=== PATIENT | female | born 1940 | race African-American/Black ===

== ENCOUNTER 2018-02-11 15:18 | Emergency (ER) | payer OTHER ==
[~2018-02-11] VITALS: Ht 162.6 cm; Wt 74.8 kg
[2018-02-11 15:55] LABS: BASOPHILS # (AUTO) 0.1 /CMM (0.0-0.2); BASOPHILS % (AUTO) 1.5 % (0.0-2.0); EOSINOPHILS % (AUTO) 0.7 % (0.0-6.0); HEMATOCRIT 33 % (33-45); HEMOGLOBIN 11.3 g/dL (11.5-14.8); LYMPHOCYTES # (AUTO) 0.8 /CMM (0.8-4.8); LYMPHOCYTES % (AUTO) 8.9 % (20.0-44.0); MEAN CORPUSCULAR HGB CONC 34 g/dl (31.0-36.0); MEAN CORPUSCULAR VOLUME 85 fL (82-100); MONOCYTES # (AUTO) 0.5 /CMM (0.1-1.30); MONOCYTES % (AUTO) 5.5 % (2.0-12.0); NEUTROPHILS % (AUTO) 83.4 % (43.0-81.0); PLATELET COUNT (AUTO) 370 /CMM (150-450); RDW COEFFICIENT OF VARIATION 16.8 (11.5-15.0); WHITE BLOOD COUNT (AUTO) 8.5 K/uL (4.3-11.0)
[2018-02-11] MEDS ORDERED: IV NS 0.9% 1,000 ML BAG IV ONE (16:00)
[2018-02-11 16:04] LABS: CALCIUM, SERUM 9.3 mg/dL (8.5-10.1); CARBON DIOXIDE 23 mmol/L (21-32); CHLORIDE 107 mmol/L (98-107); CREATININE 1.6 mg/dL (0.6-1.3); GLUCOSE 146 mg/dL (74-106); POTASSIUM 4.5 mmol/L (3.5-5.1); SODIUM SERUM 139 mmol/L (136-145); UREA NITROGEN, BLOOD 29 mg/dL (7-18)
--- NOTE | 2018-02-11 16:06 | NUR ---
PT LEFT FOR CT VIA RNEY
[2018-02-11 16:09] LABS: INR 1.76 (0.85-1.15)
[2018-02-11 16:10] LABS: ALANINE AMINOTRANSFERASE 21 U/L (12-78); ALBUMIN 3.1 g/dL (3.4-5.0); ALKALINE PHOSPHATASE 113 U/L (46-116); ASPARTATE AMINOTRANSFERASE 23 U/L (15-37); BILIRUBIN,DIRECT 0.1 mg/dL (0.0-0.2); BILIRUBIN,TOTAL 0.5 mg/dL (0.2-1.0)
[2018-02-11 16:12] LABS: TROPONIN I < 0.017 ng/mL (0.00-0.056)
--- NOTE | 2018-02-11 16:14 | NUR ---
PT RETURNED FROM CT.
--- NOTE | 2018-02-11 16:25 | NUR ---
DR. LARA AND PT'S DAUGHTER ARE AT THE BEDSIDE SPEAKING.
--- NOTE | 2018-02-11 16:30 | NUR ---
Vel pierre in [facility] - 02/11/18 at 1630 by CLOTILDE CALLED NICKIE FOR PANEL CALL AND DR LAWRENCE WAS PAGED
--- NOTE | 2018-02-11 16:49 | NUR ---
IN AND OUT CATH DONE. APPROX 10 ML YELLOW URINE OUTPUT NOTED.
--- NOTE | 2018-02-11 16:58 | NUR ---
CALLED [facility] AND SPOKE TO THEIR MOTOR CARRIER INSPECTOR TIKI, AND INFORMED THEM THAT WE HAD THEIR PT IN THE ER. WAS TOLD THAT A [facility] WOULD CALL BACK
--- NOTE | 2018-02-11 17:10 | NUR ---
PT IS AWAKE AND SPEAKING TO HER DAUGHTER WHO IS AT THE BEDSIDE. PT REC'D SOCKS AND WARM BLANKETS.
[2018-02-11 17:55] LABS: APPEARANCE,URINE SL CLOUDY (CLEAR); BILIRUBIN,URINE NEGATIVE (NEGATIVE); BLOOD, URINE NEGATIVE Ery/uL (NEGATIVE); COLOR,URINE YELLOW (YELLOW); KETONES,URINE NEGATIVE (NEGATIVE); LEUKOCYTE ESTERASE ,URINE NEGATIVE (NEGATIVE); NITRITE, URINE NEGATIVE (NEGATIVE); PH,URINE 5.5 (5.0-8.0); PROTEIN,URINE NEGATIVE (NEGATIVE); UGLUCOSE NEGATIVE (NEGATIVE); UROBILINOGEN,URINE 0.2 EU/dL (0.2)
--- NOTE | 2018-02-11 18:23 | NUR ---
PT PLACED ON THE BEDPAN.
--- NOTE | 2018-02-11 18:39 | NUR ---
BEDPAN REMOVED. NO URINE NOTED.
--- NOTE | 2018-02-11 18:42 | NUR ---
PT IS GOING TO [facility]. ETA [phone]
--- NOTE | 2018-02-11 18:44 | NUR ---
CALLED [facility] AND SPOKE TO THEIR ELECTRONICS TECH WAS GIVEN TRANSFER INFORMATION. DR. Viktoriya NAYAK IS THE ACCEPTING MD. NUMBER FOR REPORT IS [phone]. ETA FOR ALS TRANSPORT IS [phone].
--- NOTE | 2018-02-11 19:26 | NUR ---
REPORT GIVEN TO [facility] EMT.
--- NOTE | 2018-02-11 19:28 | NUR ---
[place] [facility] [place]
[2018-02-11 19:29] VITALS: BP 108/60
--- NOTE | 2018-02-11 19:40 | NUR ---
REPORT GIVEN TO DIONI RAMIREZ AT [facility].
== END 2018-02-11 20:07 ==
LOC: ER 15:20
DX: G93.40 Encephalopathy, unspecified (principal); E03.9 Hypothyroidism, unspecified; R94.02 Abnormal brain scan; I12.9 Hypertensive chronic kidney disease with stage 1 through stage 4 chronic kidney disease, or unspecified chronic kidney disease; N18.9 Chronic kidney disease, unspecified; Z79.01 Long term (current) use of anticoagulants; Z86.73 Personal history of transient ischemic attack (TIA), and cerebral infarction without residual deficits; Z88.8 Allergy status to other drugs, medicaments and biological substances
CPT/HCPCS: 36415; 70450-TC; 71045-TC; 80048-TC; 80076-TC; 81000-TC; 83605-TC; 84484-TC; 85025-TC; 85730-TC; 87040-TC; 87086-TC; A4606; J7030; Z7610

== ENCOUNTER 2021-08-04 19:01 | Inpatient (IN) | payer OTHER ==
[~2021-08-04] VITALS: Ht 162.6 cm; Wt 81.6 kg
--- NOTE | 2021-08-04 19:35 | NUR ---
PT BIBRA DUE TO INCREASED CONFUSION/WORSTENING DEMENTIA. EMS ACTIVATED BY DAUGHTER BECAUSE SHE BELIEVES SHE IS UNABLE TO CARE FOR HERSELF. PT PLACED INTO A GOWN AND MONITOR ALL VSS. MD WAS AT THE BEDSIDE FOR EVAL.
--- NOTE | 2021-08-04 19:43 | NUR ---
COVID SWAB COLLETED SENT TO LAB
[2021-08-04 20:14] LABS: ALANINE AMINOTRANSFERASE 26 U/L (12-78); ALBUMIN 3.3 g/dL (3.4-5.0); ALCOHOL, BLOOD < 3 mg/dL (0-0); ALKALINE PHOSPHATASE 130 U/L (46-116); ASPARTATE AMINOTRANSFERASE 24 U/L (15-37); BILIRUBIN,DIRECT 0.2 mg/dL (0.0-0.2); BILIRUBIN,TOTAL 0.8 mg/dL (0.2-1.0); CALCIUM, SERUM 9.2 mg/dL (8.5-10.1); CARBON DIOXIDE 27 mmol/L (21-32); CHLORIDE 105 mmol/L (98-107); CREATININE 1.8 mg/dL (0.6-1.3); GLUCOSE 124 mg/dL (74-106); POTASSIUM 4.8 mmol/L (3.5-5.1); SODIUM SERUM 139 mmol/L (136-145); TOTAL PROTEIN, SERUM 7.5 g/dL (6.4-8.2); UREA NITROGEN, BLOOD 27 mg/dL (7-18)
[2021-08-04 20:15] LABS: ACETAMINOPHEN 0 ug/ml (10-30)
[2021-08-04 20:18] LABS: BASOPHILS # (AUTO) 0.1 K/uL (0.0-0.2); BASOPHILS % (AUTO) 0.6 % (0.0-2.0); EOSINOPHILS % (AUTO) 0.8 % (0.0-6.0); HEMATOCRIT 37 % (33-45); HEMOGLOBIN 11.9 g/dL (11.5-14.8); LYMPHOCYTES # (AUTO) 0.8 K/uL (0.8-4.8); LYMPHOCYTES % (AUTO) 7.5 % (20.0-44.0); MEAN CORPUSCULAR HGB CONC 32 g/dl (31.0-36.0); MEAN CORPUSCULAR VOLUME 89 fL (82-100); MONOCYTES # (AUTO) 0.8 K/uL (0.1-1.30); MONOCYTES % (AUTO) 8.5 % (2.0-12.0); NEUTROPHILS # (AUTO) 8.3 K/uL (1.8-8.9); NEUTROPHILS % (AUTO) 82.6 % (43.0-81.0); PLATELET COUNT (AUTO) 314 K/uL (150-450)
[2021-08-04 20:22] LABS: THYROID STIMULATING HORMONE 4.298 uIU/mL (0.358-3.74)
[2021-08-04 20:26] LABS: SERUM AMMONIA < 10 umol/L (11-32)
--- NOTE | 2021-08-04 20:48 | NUR ---
[facility] PAGED PER DR GILBERT.
[2021-08-04] MEDS ORDERED: LORAZEPAM INJ 2 MG/ML VIAL ONE (21:08)
[2021-08-04] MEDS ORDERED: LORAZEPAM INJ 2 MG/ML VIAL IM ONE (21:30)
--- NOTE | 2021-08-04 21:36 | NUR ---
Vel pierre in ED - 08/05/21 at 0712 by KEMAR UA SHANNAN PRIDE MD
[2021-08-04] MEDS ORDERED: ZOLPIDEM TARTRATE 5 MG TABLET PO PRN (22:30)
[2021-08-04] MEDS ORDERED: IV 1/2NS 1000 ML 1,000 ML IV PRN (22:30)
[2021-08-04] MEDS ORDERED: ONDANSETRON HCL/PF 4 MG/2 ML VIAL IVP PRN ×2 (22:30→23:45)
[2021-08-04] MEDS ORDERED: Z GUARD REMEDY 2 OZ OINT TP PRN ×2 (22:30→23:45)
[2021-08-04] MEDS ORDERED: ACETAMINOPHEN 325 MG TABLET PO PRN (22:30)
[2021-08-04] MEDS ORDERED: MAGNESIUM HYDROXIDE 30 ML UDC PO PRN ×2 (22:30→23:45)
[2021-08-04] MEDS ORDERED: MAG HYDROX/AL HYDROX/SIMETH 30 ML UDC PO PRN ×2 (22:30→23:45)
[2021-08-04] MEDS ORDERED: DILTIAZEM HCL 25 MG IV ONE (23:18)
[2021-08-04] MEDS ORDERED: DILTIAZEM HCL 50 MG IV IV ONE (23:30)
[2021-08-05] MEDS: LORAZEPAM INJ 2 MG/ML VIAL IV PRN (02:56)
[2021-08-05 03:50] LABS: BASOPHILS # (AUTO) 0.1 K/uL (0.0-0.2); BASOPHILS % (AUTO) 0.9 % (0.0-2.0); EOSINOPHILS % (AUTO) 0.9 % (0.0-6.0); HEMATOCRIT 41 % (33-45); HEMOGLOBIN 12.9 g/dL (11.5-14.8); LYMPHOCYTES % (AUTO) 18.9 % (20.0-44.0); MEAN CORPUSCULAR HGB CONC 32 g/dl (31.0-36.0); MEAN CORPUSCULAR VOLUME 89 fL (82-100); MONOCYTES % (AUTO) 9.8 % (2.0-12.0); NEUTROPHILS # (AUTO) 7.4 K/uL (1.8-8.9); NEUTROPHILS % (AUTO) 69.5 % (43.0-81.0); PLATELET COUNT (AUTO) 373 K/uL (150-450); RED BLOOD CELL COUNT(AUTO) 4.56 MIL/uL (4.0-5.2); WHITE BLOOD COUNT (AUTO) 10.6 K/uL (4.3-11.0)
[2021-08-05 04:06] LABS: CALCIUM, SERUM 9.2 mg/dL (8.5-10.1); CARBON DIOXIDE 22 mmol/L (21-32); CHLORIDE 105 mmol/L (98-107); CREATININE 1.8 mg/dL (0.6-1.3); GLUCOSE 157 mg/dL (74-106); MAGNESIUM 2.1 mg/dL (1.8-2.4); PHOSPHORUS 4.1 mg/dL (2.5-4.9); POTASSIUM 4.1 mmol/L (3.5-5.1); SODIUM SERUM 143 mmol/L (136-145); UREA NITROGEN, BLOOD 25 mg/dL (7-18)
--- NOTE | 2021-08-05 05:18 | NUR ---
RECIEVED BED 328-2
--- NOTE | 2021-08-05 07:12 | NUR ---
urine sent to lab
--- NOTE | 2021-08-05 07:22 | NUR ---
ATTEMPTED TO GIVE REPORT. NURSE WILL CALL BACK
[2021-08-05] MEDS ORDERED: PANTOPRAZOLE 40 MG TABLET.DR PO SCH (07:30)
--- NOTE | 2021-08-05 07:48 | NUR ---
REPORT GIVEN TO LANETTE WHEATLEY FOR [facility]
[2021-08-05 08:15] VITALS: BP 132/72
[2021-08-05 08:22] LABS: BILIRUBIN,URINE NEGATIVE (NEGATIVE); COLOR,URINE YELLOW (YELLOW); LEUKOCYTE ESTERASE ,URINE NEGATIVE (NEGATIVE); NITRITE, URINE NEGATIVE (NEGATIVE); PH,URINE 5.5 (5.0-8.0); PROTEIN,URINE TRACE mg/dl (NEGATIVE); UGLUCOSE NEGATIVE (NEGATIVE); UROBILINOGEN,URINE 0.2 EU/dL (0.2)
[2021-08-05] MEDS ORDERED: ATOR80TA PO (08:46)
[2021-08-05] MEDS ORDERED: LEVO25TA7 PO (08:46)
[2021-08-05] MEDS ORDERED: DABI150C PO (08:46)
[2021-08-05] MEDS ORDERED: METO100T14 PO (08:46)
[2021-08-05] MEDS ORDERED: DILT-32 PO (08:46)
[2021-08-05] MEDS: IV 1/2NS 1000 ML 1,000 ML IV PRN (08:53)
[2021-08-05 08:54] LABS: BACTERIA,URINE Few /HPF (None Seen); RBC,URINE 0-2 /HPF (0-2); SQUAMOUS EPITHELIAL CELL,UR Few /HPF (None Seen)
[2021-08-05] MEDS: PANTOPRAZOLE 40 MG TABLET.DR PO SCH (09:08)
--- NOTE | 2021-08-05 09:33 | NUR ---
MS RN ADMITTING NOTES PT ADMITTED TO UNIT AT O800 VIA GURNEY ACCOMPANIED BY Donnie KIMBROUGH. PT IS A/O X2-3. VERY SLEEPY AND CONFUSED. UN-ABLE TO GET INFORMATION FROM HER, CALLED DAUGHTER FREDY AND GETS INFORMATION FROM HER. PT ON 02 VIA N/C AT 2LPM, TOLERATING WELL WITH NO ACUTE RESPIRATORY DISTRESS NOTED. LUNGS CLEARED BILATERALLY ON AUSCULTATION. ABDOMEN SOFT, NON-TENDER AND NON-DISTENDED WITH ACTIVE BOWELS SOUNDS ON FOUR QUADRANTS. PHOTOS OF SKIN ISSUES TAKEN AND FILED ON HER CHART. PT NOTED WITH IV ACCESS ON RIGHT HAND G#20 INTACT AND PATENT, IVF OF 1/2 NS AT 75ML STARTED. SAFETY MEASURES INITIATED: BED PLACED IN LOWEST LOCKED POSITION WITH SR UP X2. CALL LIGHT PLACED W/I EASY REACH OF PT. WILL CONTINUE TO MONITOR PT.
[2021-08-05 16:00] VITALS: BP 136/86
--- NOTE | 2021-08-05 18:22 | NUR ---
RN CLOSING NOTES PATIENT ON BED, AWAKE, A/O X2, WITH CONFUSION AND FORGETFULNESS. ON ROOM AIR AT THIS TIME, SATTING @96%, NO SOB NOTED, BREATHING EVEN AND UNLABORED. WITH IV ACCESS ON LHAND PATENT AND INTACT, 1/2 NS @75ML/HR INFUSING WELL. ASSISTED TO BATHROOM NEEDED. SAFETY MEASURES PROVIDED. BED LOCKED AND ON LOWEST POSITION, SR UP X2, CALL LIGHT PLACED WITHIN EASY REACH. WILL ENDORSE TO NEXT SHIFT.
--- NOTE | 2021-08-05 19:05 | NUR ---
RN NOTES: RECEIVED ASLEEP ON BED, PER ENDORSEMENT PATIENT IS A/0X2 WITH PERIODS OF CONFUSION AND FORGETFULNESS,SHE WAS ADMITTED IN THE MORNING, LIVES ALONE AND BROUGHT IN BY HER DAUGHTER, IVF OF 1/2 NS AT 75 CC/HR ONGOING, IV CANNULA ON THE LH G#20 PATENT.SECURED WITH CURLEX.PER MORNING RN SHE WAS AWAKE AT AROUND 4PM AND AMBULATORY, PENDING MED-RECON WITH ADMITTING DOCTOR, HOME MED WERE ALREADY IN THE COMPUTER.ON RA SPO2-95%. Addendum: 08/05/21 at 2029 by SASKIA IBANEZ RN RN NOTES: RN/CH NOTIFIED REGARDING PENDING MED-RECON BY ADMITTING DOCTOR.
[2021-08-05 20:00] VITALS: BP 123/52
--- NOTE | 2021-08-05 20:26 | NUR ---
RN NOTES: -AROUND 200O SHE WAS AWAKE ASKING TO GO TO BATHROOM, IMMEDIATELY RN ASSISTED HER ON THE BED SIDE COMMODE, SHE PEE, ASSISTED BACK TO HER BED, NOTED WITH SLIGHT SOB, KEPT ON O2 INHALATION, SPO2-96%, AFTER FEW MINUTES SHE LOOKS COMFORTABLE, NO MORE SOB, SHE CLOSE HER EYES AND GO BACK TO SLEEP. Addendum: 08/05/21 at 2030 by SASKIA IBANEZ RN ADDED NOTES: -DRINK THIN LIQUIDS, TOLERATED, ASPIRATION PRECAUTION OBSERVED.
--- NOTE | 2021-08-05 20:49 | NUR ---
RN NOTES: -AWAKE SHE REQUEST TO OPEN HER I-PAD, ASSISTED TO THE COMMODE, NOTED WITH SLIGHT SOB, ASKED "ARE YOU OK", SHE VERBALIZED "YES I AM FINE", CONTINUE WITH O2 INHALATION,.OBSERVED, INSTRUCTED HOW TO USE THE CALL LIGHT.
--- NOTE | 2021-08-05 22:29 | NUR ---
RN NOTES: AWAKE ASSISTED ON THE COMMODE, SHE HAD BM, PASS FORMED BROWNISH STOOL, SHE VERBALIZED SHE FEEL GOOD AFTER SHE HAD BOWEL MOVEMENT, ENCOURAGE TO SLEEP,SHE REQUEST TO REMOVE HER IVF, SHE SAID "PLEASE REMOVE IT, ITS DIFFICULT FOR ME TO GET UP WITH THE TUBE ON", EXPLAINED TO HER ITS HER IV FLUIDS FOR HYDRATION, SHE SAID "LATER", SHE ALSO REOMVE HER COMPRESSION DEVISE. -KEPT ON CLOSE WATCH,NEEDS ANTICIPATED.
--- NOTE | 2021-08-06 03:08 | NUR ---
RN NOTES: -AWAKE SHE TRIED TO GET UP FROM BED, DID NOT CALL FOR HELP, RN SAW HER IV CANULA ON THE LH WAS ACCIDENTALLY PULLED OUT, SCANTY BLEEDING NOTED, PRESSURE DRESSING APPLIED. -EXPLAINED TO HER WE NEED TO REINSERT AGAIN, SHE AGREED. -IV CANNULA INSERTED ON THE RH G#22 WITH GOOD BACK FLOW, WRAP WITH CURLEX. -RN EXPLAINED TO HER WE NEED TO RE-START THE IV SHE SAID, LATER ON.
--- NOTE | 2021-08-06 03:12 | NUR ---
RN NOTES: -AWAKE SHE GET UP AND ASKED FOR WATER. -NOTED WITH SLIGHT SOB WHEN SHE EXERT EFFORT AND WHENEVER SHE AMBULATE, ONCE SHE GO BACK TO BED WITH O2 INHALATION SHE LOOKS BETTER AND BREATHING GOES BACK TO NORMAL. -ENCOURAGE TO GO BACK TO SLEEP.
--- NOTE | 2021-08-06 06:54 | NUR ---
RN NOTES: AMBULATING WHENEVER SHE IS AWAKE, ORIENTED TO UNIT, REMINDED SHE IS STILL IN THE HOSPITAL, REFUSED TO START IVF, NOTED WITH SLIGHT SOB WHENEVER SHE WALK EVEN SHORT DISTANCE, SHE CALM DOWN AND BACK TO NORMAL RESPIRATION ONCE SHE IS IN BED AND ABLE TO REST.ENDORSED FOR CONTINUITY OF CARE.
--- NOTE | 2021-08-06 07:32 | NUR ---
RN OPENING NOTE RECEIVED PATIENT AWAKE IN BED. A/O X 1-2. NO S/SX OF DISTRESS NOTED. PATIENT ON 2L O2 VIA NC SATURATING >96%. BREATHING IS EVEN AND UNLABORED; NO SOB NOTED. NO S/SX OF DISTRESS NOTED. IV ACCESS LHAND#22 PATENT AND INTACT WITH 1/2 NS RUNNING @75MLS/HR. SAFETY PRECAUTIONS IN PLACE; BED IN LOW POSITION AND LOCKED, SIDE RAILS UP X2, CALL LIGHT WITHIN REACH. WILL CONTINUE TO MONITOR PATIENT.
[2021-08-06 08:00] VITALS: BP 120/61
[2021-08-06] MEDS: PANTOPRAZOLE 40 MG TABLET.DR PO SCH (08:05)
[2021-08-06 15:50] LABS: CREATININE, URINE 146.2 MG/DL (30.0-125.0)
[2021-08-06 16:00] VITALS: BP 135/72
--- NOTE | 2021-08-06 16:05 | NUR ---
MS RN NOTES DR. DENISHA IY MADE AWARE OF US OF KIDNEY AND URINE TEST RESULTS WITH NO NEW ORDERS.
[2021-08-06] MEDS: IV 1/2NS 1000 ML 1,000 ML IV PRN (18:54)
--- NOTE | 2021-08-06 19:25 | NUR ---
RN OPENING NOTE RECEIVED PT AWAKE IN BED, WATCHING TV. A/O X2. ABLE TO VERBALIZE NEEDS. ON O2 @2LPM VIA NC. PT GETS SOB WITH EXERTION. ABLE TO AMBULATE TO BR WITH STANDBY ASSIST PROVIDED. IV SITE: #22 INTACT/PATENT, RUNNING 1/2 NS @75ML/HR. PT IN NO ACUTE DISTRESS. SAFETY MEASURES IN PLACE, BED IN LOWEST LOCKED POSITION, S/R UP X2, CALL LIGHT WITHIN REACH. WILL CONT TO MONITOR.
[2021-08-06 20:00] VITALS: BP 135/79
--- NOTE | 2021-08-07 07:05 | NUR ---
RN CLOSING NOTE PT RESTING IN BED, EASILY AROUSABLE TO STIMULI. NO C/O PAIN OR DISCOMFORT. PT AMBULATES TO BR TO VOID, STANDBY ASSIST PROVIDED. ALSO USES BEDSIDE COMMODE NEEDED. PT IN NO ACUTE DISTRESS. SAFETY MEASURES IN PLACE. ALL NEEDS ATTENDED TO.
--- NOTE | 2021-08-07 07:25 | NUR ---
MS RN OPENING NOTE PATIENT IN BED, RESTING; A/O X 2. ON O2 AT 2 LPM, BREATHING EVENLY AND UNLABORED. NO SOB OR S/S OF DISTRESS NOTED. IV ACCESS ON LEFT HAND #22G RUNNING 1/2 NS AT 75ML/HR. SAFETY PRECAUTIONS IN PLACE: BED IN LOW, LOCKED POSITION; SIDERAILS UP X 2; ALL LIGHT WITHIN REACH. WILL CONTINUE TO MONITOR.
[2021-08-07] MEDS: PANTOPRAZOLE 40 MG TABLET.DR PO SCH (07:29)
[2021-08-07 08:00] VITALS: BP 135/88
--- NOTE | 2021-08-07 09:00 | NUR ---
RN NOTE RECEIVED VERBAL ORDER FROM DENISE FELIX DNP ORDERED TO DC 1/2 NS IV FLUID.
[2021-08-07] MEDS: DILTIAZEM HCL CD 120 MG PO SCH ×2 (10:08→22:44)
[2021-08-07] MEDS: LEVOTHYROXINE SODIUM 25 MCG TABLET PO SCH (10:09)
[2021-08-07] MEDS: METOPROLOL TARTRATE 50 MG TABLET PO SCH ×2 (10:09→21:23)
[2021-08-07] MEDS: DABIGATRAN ETEXILATE MESYLATE 150 MG CAPSULE PO SCH (10:10)
[2021-08-07 16:00] VITALS: BP 109/59
[2021-08-07] MEDS: LORAZEPAM INJ 2 MG/ML VIAL IV PRN (17:16)
--- NOTE | 2021-08-07 18:28 | NUR ---
RN NOTE MD ORDERED PSYCH CONSULT FOR AGITATION AND ANXIETY.
--- NOTE | 2021-08-07 18:37 | NUR ---
MS RN CLOSING NOTE PATIENT IN BED, ASLEEP. A/O X 2, ABLE TO MAKE NEEDS KNOWN. ON O2 AT 2 LPM, BREATHING EVENLY AND UNLABORED. NO SOB OR S/S OF DISTRESS NOTED. IV ACCESS ON RIGHT HAND #22G PATENT, INTACT, AND FLUSHING WELL. DUE MEDS GIVEN. SAFETY PRECAUTIONS MAINTAINED: BED IN LOW, LOCKED POSITION; SIDERAILS UP X 2; CALL LIGHT WITHIN REACH. WILL ENDORSE TO TOP LIFT SCOURER NURSE FOR [facility].
--- NOTE | 2021-08-07 19:15 | NUR ---
MS/RN OPENING NOTE PT AWAKE IN BED, VERBAL, A/OX2. ABLE TO VERBALIZE NEEDS. HAS SOME CONFUSION AND EASY FORGETFULNESS. REORIENTATION PROVIDED. PT DENIES PAIN OR DISCOMFORT. RESPIRATIONS EVEN AND UNLABORED. ON ROOM AIR AT THIS TIME, SPO2 96%.USES O2 NEEDED, FOR SOB ON EXERTION. PT IN NO ACUTE DISTRESS. SAFETY MEASURES IN PLACE, BED IN LOWEST LOCKED POSITION, S/R UPX2, CALL LIGHT WITHIN REACH. WILL CONT TO MONITOR.
[2021-08-07 20:00] VITALS: BP 119/88
[2021-08-07] MEDS: risperiDONE 1 MG TABLET PO SCH (21:21)
[2021-08-07] MEDS ORDERED: RIVASTIGMINE TARTRATE 1.5 MG CAPSULE ONE (21:42)
[2021-08-07] MEDS: RIVASTIGMINE TARTRATE 1.5 MG CAPSULE PO SCH (21:44)
--- NOTE | 2021-08-07 21:48 | NUR ---
RN NOTE EXELON 1.5MG CAP NOT AVAILABLE HERE AT [facility]. OBTAINED FROM [facility] BY CHARGE NURSE,
[2021-08-07] MEDS: ATORVASTATIN 40 MG TABLET PO SCH (22:44)
--- NOTE | 2021-08-08 06:53 | NUR ---
MS/RN CLOSING NOTE PT AWAKE IN BED, DENIES ANY PAIN OR DISCOMFORT. RESPIRATIONS EVEN/UNLABORED. PT NOT USING O2 @THIS TIME. SPO2 95%. PT IN NO ACUTE DISTRESS. SAFETY MEASURES IN PLACE. ALL NEEDS ATTENDED TO.
[2021-08-08] MEDS: RIVASTIGMINE TARTRATE 1.5 MG CAPSULE PO SCH ×2 (07:00→19:05)
--- NOTE | 2021-08-08 07:44 | NUR ---
MS RN OPENING NOTE PATIENT RECEIVED ASLEEP IN BED. PATIENT IS ON ROOM AIR. NON-LABORED BREATHING; NO S/S OF DISTRESS; NO S/S OF PAIN SUCH GRIMACING OR GUARDING OR MOANING; LH 22 G PRESENT AND INTACT SL; SAFETY PRECAUTIONS IN PLACE, BED IN LOWEST POSITION AND LOCKED, RAILS UP x2. CALL LIGHT WITHIN REACH. WILL CONTINUE TO MONITOR PATIENT.
[2021-08-08] MEDS: PANTOPRAZOLE 40 MG TABLET.DR PO SCH (08:22)
[2021-08-08] MEDS: risperiDONE 1 MG TABLET PO SCH ×2 (08:22→19:31)
[2021-08-08] MEDS: DABIGATRAN ETEXILATE MESYLATE 150 MG CAPSULE PO SCH (08:23)
[2021-08-08] MEDS: LEVOTHYROXINE SODIUM 25 MCG TABLET PO SCH (08:24)
[2021-08-08 08:30] VITALS: BP 113/60
--- NOTE | 2021-08-08 08:47 | NUR ---
WOUND CARE CONSULT: PT REFUSED SKIN ASSESSMENT. PER RN, SKIN IS INTACT. CURRENT ROCÍO SCORE IS 18. ADMISSION PHOTO INDICATES DISCOLORATION ON BUTTOCKS. WILL SEE PRN.
[2021-08-08] MEDS: METOPROLOL TARTRATE 50 MG TABLET PO SCH ×2 (09:00→21:24)
[2021-08-08 12:00] VITALS: BP 115/56
[2021-08-08 16:01] VITALS: BP 124/56
--- NOTE | 2021-08-08 18:52 | NUR ---
MS RN CLOSING NOTE PATIENT ASLEEP IN BED. BREATHING IS SYMMETRICAL AND SHOWING NO S/S OF DISTRESS; NO IV AT THIS TIME; PATIENT REFUSES IV REINSERTION; ALL NEEDS ATTENDED DURING THE DAY; PATIENT IS CURRENTLY AWAITING PLACEMENT FOR D/C; PER SAFETY MEASURES, BED IS LOCKED, AT LOWEST POSITION, WITH RAILS UP X2. WILL ENDORSE PATIENT TO NEXT SHIFT FOR [facility].
--- NOTE | 2021-08-08 19:48 | NUR ---
MS RN OPENING NOTES RECEIVED PT IN BED, AWAKE. AOx2. ON RA AND TOLERATING WELL. NO SOB NOTED. NO S/SX OF RESPIRATORY DISTRESS NOTED. NO IV ACCESS PRESENT BECAUSE PATIENT REFUSED IV INSERTION PER DAYTIME NURSE. SAFETY PRECAUTIONS IN PLACE: BED IN LOWEST, LOCKED POSITION, SIDERAILS UP x2, AND BRAKES ON. TABLE AND CALL LIGHT WITHIN REACH. WILL CONTINUE TO MONITOR.
[2021-08-08 20:48] VITALS: BP 118/62
[2021-08-08] MEDS: ATORVASTATIN 40 MG TABLET PO SCH (21:24)
[2021-08-08] MEDS: DILTIAZEM HCL CD 120 MG PO SCH (22:26)
--- NOTE | 2021-08-09 06:39 | NUR ---
MS RN OPENING NOTES PT IN BEDSIDE CHAIR, AWAKE. AOx2. ON RA AND TOLERATING WELL. NO SOB NOTED. NO S/SX OF RESPIRATORY DISTRESS NOTED. NO IV ACCESS PRESENT BECAUSE PATIENT REFUSED IV INSERTION PER DAYTIME NURSE. ALL NEEDS MET. PT KEPT CLEAN AND DRY. SAFETY PRECAUTIONS IN PLACE: BED IN LOWEST, LOCKED POSITION, SIDERAILS UP x2, AND BRAKES ON. TABLE AND CALL LIGHT WITHIN REACH. WILL ENDORSE TO ONCOMING SHIFT. Addendum: 08/09/21 at 0641 by LENO LIZ RN MS RN CLOSING NOTES
--- NOTE | 2021-08-09 07:45 | NUR ---
RN OPENING NOTE PATIENT IN BEDSIDE CHAIR, AWAKE. A/O x2. NO S/S OF PAIN NOTED AT THIS TIME. ON ROOM AIR AND TOLERATING WELL. NO SHORTNESS OF BREATH NOTED. NO IV ACCESS PRESENT BECAUSE PATIENT REFUSED IV INSERTION PER PREVIOUS NURSE. SAFETY PRECAUTIONS IN PLACE: BED IN LOWEST, LOCKED POSITION, CALL LIGHT AND BEDSIDE TABLE WITHIN REACH. WILL CONTINUE TO MONITOR.
[2021-08-09 08:00] VITALS: BP 155/108
[2021-08-09] MEDS: LEVOTHYROXINE SODIUM 25 MCG TABLET PO SCH (08:12)
[2021-08-09] MEDS: PANTOPRAZOLE 40 MG TABLET.DR PO SCH (08:12)
[2021-08-09] MEDS: risperiDONE 1 MG TABLET PO SCH ×2 (08:12→20:11)
[2021-08-09] MEDS: DABIGATRAN ETEXILATE MESYLATE 150 MG CAPSULE PO SCH (09:09)
[2021-08-09] MEDS: METOPROLOL TARTRATE 50 MG TABLET PO SCH ×2 (09:10→20:12)
[2021-08-09] MEDS: RIVASTIGMINE TARTRATE 1.5 MG CAPSULE PO SCH ×2 (09:11→20:11)
[2021-08-09 16:00] VITALS: BP 107/66
--- NOTE | 2021-08-09 19:11 | NUR ---
RN CLOSING NOTES PATIENT IN BEDSIDE CHAIR, AWAKE. A/O x2. NO S/S OF PAIN NOTED AT THIS TIME. ON ROOM AIR AND TOLERATING WELL. NO SHORTNESS OF BREATH NOTED. NO IV ACCESS PRESENT BECAUSE PATIENT REFUSED IV INSERTION PER PREVIOUS NURSE. SAFETY PRECAUTIONS IN PLACE: BED IN LOWEST, LOCKED POSITION, CALL LIGHT AND BEDSIDE TABLE WITHIN REACH. WILL ENDORSE TO SKIP PITMAN.
--- NOTE | 2021-08-09 19:45 | NUR ---
MS RN OPENING NOTES RECEIVED PT IN BEDSIDE CHAIR, AWAKE. AOx2-3, WITH CONFUSION. ON RA AND TOLERATING WELL. NO SOB NOTED. NO S/SX OF RESPIRATORY DISTRESS NOTED. NO IV ACCESS BECUASE PATIENT REFUSED IV INSERTION. SAFETY PRECAUTIONS IN PLACE: BED IN LOWEST, LOCKED POSITION, SIDERAILS UPx2, AND BRAKES ON. TABLE AND CALL LIGHT WITHIN REACH. WILL CONTINUE TO MONITOR.
[2021-08-09 20:06] VITALS: BP 95/57
[2021-08-09] MEDS: ACETAMINOPHEN 325 MG TABLET PO PRN (21:13)
[2021-08-09] MEDS: DILTIAZEM HCL CD 120 MG PO SCH (21:13)
[2021-08-09] MEDS: ATORVASTATIN 40 MG TABLET PO SCH (21:13)
[2021-08-09] MEDS: ZOLPIDEM TARTRATE 5 MG TABLET PO PRN (23:51)
--- NOTE | 2021-08-10 01:51 | NUR ---
SPOKE TO DAUGHTER, FREDY, WHO STATED [facility] DID NOT APPROVE SNF. SHE WAS TOLD SHE COULD APPEAL. CONTACT NUMBER IS [phone]
--- NOTE | 2021-08-10 06:50 | NUR ---
MS RN CLOSING NOTES PT IN BED, AWAKE. AOx2-3, WITH CONFUSION. ON RA AND TOLERATING WELL. NO SOB NOTED. NO S/SX OF RESPIRATORY DISTRESS NOTED. NO IV ACCESS BECUASE PATIENT REFUSED IV INSERTION. ALL NEEDS MET. PT KEPT CLEAN AND DRY. SAFETY PRECAUTIONS IN PLACE: BED IN LOWEST, LOCKED POSITION, SIDERAILS UPx2, AND BRAKES ON. TABLE AND CALL LIGHT WITHIN REACH. WILL ENDORSE TO ONCOMING SHIFT FOR AMILCAR.
--- NOTE | 2021-08-10 07:55 | NUR ---
RN OPENING NOTE PATIENT IN BEDSIDE SLEEPING, AWAKENS TO VERBAL STIMULI. A/O x2. NO S/S OF PAIN NOTED AT THIS TIME. ON ROOM AIR AND TOLERATING WELL. NO SHORTNESS OF BREATH NOTED. NO IV ACCESS PRESENT BECAUSE PATIENT REFUSED. SAFETY PRECAUTIONS IN PLACE: BED IN LOWEST, LOCKED POSITION, CALL LIGHT AND BEDSIDE TABLE WITHIN REACH. WILL CONTINUE TO MONITOR.
[2021-08-10 08:00] VITALS: BP 123/71
[2021-08-10] MEDS: RIVASTIGMINE TARTRATE 1.5 MG CAPSULE PO SCH ×2 (08:52→20:29)
[2021-08-10] MEDS: risperiDONE 1 MG TABLET PO SCH ×2 (08:53→20:28)
[2021-08-10] MEDS: PANTOPRAZOLE 40 MG TABLET.DR PO SCH (08:53)
[2021-08-10] MEDS: DABIGATRAN ETEXILATE MESYLATE 150 MG CAPSULE PO SCH (08:53)
[2021-08-10] MEDS: LEVOTHYROXINE SODIUM 25 MCG TABLET PO SCH (08:54)
[2021-08-10] MEDS: METOPROLOL TARTRATE 50 MG TABLET PO SCH ×2 (08:55→20:28)
[2021-08-10 16:00] VITALS: BP 108/64
--- NOTE | 2021-08-10 17:52 | NUR ---
HOLD RIVASTIGMINE AND RISPERIDONE DUE TO DROWSINESS. PATIENT BEING SLEEPING MOST OF THE DAY. CN AWARE.
--- NOTE | 2021-08-10 18:50 | NUR ---
RN CLOSING NOTES PATIENT IN BED SLEEPING, AWAKENS TO VERBAL STIMULI. A/O x2. NO S/S OF PAIN NOTED AT THIS TIME. ON ROOM AIR AND TOLERATING WELL. NO SHORTNESS OF BREATH NOTED. NO IV ACCESS PRESENT BECAUSE PATIENT REFUSED. SAFETY PRECAUTIONS IN PLACE: BED IN LOWEST, LOCKED POSITION, CALL LIGHT AND BEDSIDE TABLE WITHIN REACH. WILL ENDORSE PATIENT TO ZONE MAINTENANCE TECHNICIAN.
--- NOTE | 2021-08-10 19:10 | NUR ---
MS RN OPENING NOTES: RECEIVED PT IN BED ASLEEP. NO S/S OF DISTRESS NOTED. CALL LIGHT WITHIN REACH. BED ALARM ON. BED IN LOWEST AND LOCKED POSITION.
[2021-08-10 20:00] VITALS: BP 122/61
[2021-08-10] MEDS: ATORVASTATIN 40 MG TABLET PO SCH (23:11)
[2021-08-10] MEDS: DILTIAZEM HCL CD 120 MG PO SCH (23:11)
[2021-08-11 08:00] VITALS: BP 117/74
--- NOTE | 2021-08-11 08:01 | NUR ---
MS/RN OPENING NOTE RECEIVD PATIENT AT BEDSIDE. A/O x2, PERIODS OF CONFUSION. NO S/S OF PAIN NOTED AT THIS TIME. STABLE ON ROOM AIR AND TOLERATING WELL. NO SHORTNESS OF BREATH NOTED. NO IV ACCESS PRESENT BECAUSE PATIENT REFUSED. SAFETY PRECAUTIONS IN PLACED: BED IN LOWEST, LOCKED POSITION, CALL LIGHT AND BEDSIDE TABLE WITHIN REACH. WILL CONTINUE TO MONITOR.
[2021-08-11] MEDS: LEVOTHYROXINE SODIUM 25 MCG TABLET PO SCH (09:12)
[2021-08-11] MEDS: PANTOPRAZOLE 40 MG TABLET.DR PO SCH (09:12)
[2021-08-11] MEDS: METOPROLOL TARTRATE 50 MG TABLET PO SCH ×2 (09:13→22:13)
[2021-08-11] MEDS: risperiDONE 1 MG TABLET PO SCH ×3 (09:13→19:25)
[2021-08-11] MEDS: RIVASTIGMINE TARTRATE 1.5 MG CAPSULE PO SCH ×3 (09:14→19:08)
[2021-08-11] MEDS: DABIGATRAN ETEXILATE MESYLATE 150 MG CAPSULE PO SCH (09:18)
[2021-08-11 16:00] VITALS: BP 103/63
--- NOTE | 2021-08-11 18:48 | NUR ---
RN CLOSING NOTES PATIENT IS AWAKE SITTING AT BEDSIDE. AWAKENS TO VERBAL STIMULI. A/O x1-2. NO S/S OF PAIN NOTED AT THIS TIME. ON ROOM AIR AND TOLERATING WELL. NO SHORTNESS OF BREATH NOTED. NO IV Pt REFUSED INSERTION. SAFETY PRECAUTIONS IN PLACE: BED LOCKED AND IN LOWEST POSITION, CALL LIGHT AND BEDSIDE TABLE WITHIN REACH. WILL ENDORSE PATIENT TO PROCESSING ARCHIVIST.
--- NOTE | 2021-08-11 19:56 | NUR ---
MS RN OPENING NOTES RECEIVED PATIENT AWAKE IN BED, BED IN LOW POSITION, CALL LIGHTS WITHIN REACH, NO COMPLAIN OF PAIN AND DISCOMFORT AT THIS TIME, PATIENT IS A/OX2 WITH EPISODE OF CONFUSION, AMBULATORY, NEEDS TO BE REDIRECTED TO ROOM, CONFUSED, NO IV LINE PATIENT REFUSE, PATIENT IS AWAITING FOR PLACEMENT,KEPT CLEAN AND DRY ALL NEEDS MET, WILL CONTINUE TO MONITOR.
[2021-08-11 20:00] VITALS: BP 138/65
[2021-08-11] MEDS: DILTIAZEM HCL CD 120 MG PO SCH (22:12)
[2021-08-11] MEDS: ATORVASTATIN 40 MG TABLET PO SCH (22:13)
--- NOTE | 2021-08-12 07:36 | NUR ---
MS RN CLOSING NOTES: PATIENT AWAKE IN ROOOM , AMBULATORY, A.O X3 WITH EPISODE OF CONFUSION, PATIENT WAS ABLE TO MAKE NEED KNOW, NO IV LINE PATIENT REFUSED, PATIENT ALWAYS INTEND TO GO OUT OF THE ROOM ,REMIND AND REDIRECTION. PATIENT KEPT CLEAN AND DRY ALL NEEDS MET, ENDORSE TO INCOMING SHIFT.
[2021-08-12 08:16] VITALS: BP 113/67
[2021-08-12] MEDS: LEVOTHYROXINE SODIUM 25 MCG TABLET PO SCH (08:32)
[2021-08-12] MEDS: METOPROLOL TARTRATE 50 MG TABLET PO SCH ×2 (08:32→21:51)
[2021-08-12] MEDS: risperiDONE 1 MG TABLET PO SCH ×2 (08:33→20:23)
[2021-08-12] MEDS: PANTOPRAZOLE 40 MG TABLET.DR PO SCH (08:33)
[2021-08-12] MEDS: DABIGATRAN ETEXILATE MESYLATE 150 MG CAPSULE PO SCH (08:33)
[2021-08-12] MEDS: RIVASTIGMINE TARTRATE 1.5 MG CAPSULE PO SCH ×2 (08:34→20:23)
--- NOTE | 2021-08-12 09:11 | NUR ---
MS/RN OPENING NOTE RECEIVED PATIENT AWAKE AT BEDSIDE. A/O x2, PERIODS OF CONFUSION NOTICED. NO S/S OF PAIN NOTED AT THIS TIME. STABLE ON ROOM AIR AND TOLERATING WELL. NO SHORTNESS OF BREATH NOTED. NO IV ACCESS PRESENT BECAUSE PATIENT REFUSED. SAFETY PRECAUTIONS IN PLACED: BED LOCKED AND IN LOWEST,POSITION, CALL LIGHT AND BEDSIDE TABLE WITHIN REACH. WILL CONTINUE TO MONITOR THROUGHOUT THE SHIFT.
[2021-08-12 16:21] VITALS: BP 134/78
--- NOTE | 2021-08-12 19:31 | NUR ---
MS RN OPENING NOTES: RECEIVED PATIENT SLEEP IN BED COMFORTABLY, AROUSABLE TO VERBAL STIMULI, BED IN LOW POSITION, CALL LIGHTS WITHIN REACH, PATIENT IS A/O X1 AMBULATORY WITH EPISODE OF CONFUSION, PATIENT KEPT CLEAN AND DRY, ALL NEEDS MET, WILL CONTINUE TO MONITOR.
--- NOTE | 2021-08-12 19:34 | NUR ---
MS RN CLOSING NOTES: PATIENT ASLEEP IN ROOM , AMBULATORY, A/O X1 WITH EPISODE OF CONFUSION. PATIENT IS ON ROOM AIR WITH BRP. NO IV LINE PATIENT REFUSED, PATIENT ALWAYS INTEND TO GO OUT OF THE ROOM. PT WAS REDIRECTED. PATIENT KEPT CLEAN AND DRY, ALL NEEDS MET, WILL ENDORSE TO ONCOMING SHIFT.
[2021-08-12 20:00] VITALS: BP 147/68
[2021-08-12] MEDS: DILTIAZEM HCL CD 120 MG PO SCH (21:50)
[2021-08-12] MEDS: ATORVASTATIN 40 MG TABLET PO SCH (21:51)
[2021-08-13] MEDS: RIVASTIGMINE TARTRATE 1.5 MG CAPSULE PO SCH ×2 (06:27→19:02)
--- NOTE | 2021-08-13 06:41 | NUR ---
MS RN CLOSING NOTES: PATIENT AWAKE IN BED, BED IN LOW POSITION, CALL LIGHTS WITHIN REACH, NO COMPLAIN OF PAIN AND DISCOMFORT AT THIS TIME, PATIENT IS AMBULATORY A/O X2-3 ON ROOM AIR NO RESP DISTRESS WAS OBSERVED, NO IV LINE PATIENT KEPT REFUSING KEPT CLEAN AND DRY, ALL NEEDS MET, PATIENT DUE FOR D/C AWAITING FOR PLACEMENT, ENDORSE TO INCOMING SHIFT.
--- NOTE | 2021-08-13 07:16 | NUR ---
RN OPENING NOTES RECEIVED PATIENT SLEEPING IN BED COMFORTABLY, A/O X1, CONFUSED, ABLE TO MAKE NEEDS KNOWN. BREATHING EVEN AND UNLABORED, TOLERATING ROOM AIR. NO IV LINE PER PREVIOUS SHIFT RN REPORT. ABLE TO AMBULATE W/ STEADY GAIT. SAFETY MEASURES IN PLACE. WILL CONTINUE TO MONITOR.
[2021-08-13] MEDS: risperiDONE 1 MG TABLET PO SCH ×2 (08:02→19:02)
[2021-08-13] MEDS: LEVOTHYROXINE SODIUM 25 MCG TABLET PO SCH (08:02)
[2021-08-13] MEDS: PANTOPRAZOLE 40 MG TABLET.DR PO SCH (08:03)
[2021-08-13] MEDS: DABIGATRAN ETEXILATE MESYLATE 150 MG CAPSULE PO SCH (08:03)
[2021-08-13] MEDS: METOPROLOL TARTRATE 50 MG TABLET PO SCH ×2 (08:04→22:00)
--- NOTE | 2021-08-13 14:00 | NUR ---
RN NOTES SPOKE W/ FREDY (FAMILY/RP) [phone] AND WAS INFORMED TO HOLD DISCHARGE FOR NOW UNTIL PLACEMENT HAS BEEN ARRANGED AND FINALIZED.
--- NOTE | 2021-08-13 15:30 | NUR ---
RN NOTES SPOKE W/ SIL, VALUE ADVISOR, AND INFORMED ABOUT FREDY'S INQUIRY. WILL FOLLOW-UP NEEDED PER CM.
[2021-08-13 16:00] VITALS: BP 96/66
--- NOTE | 2021-08-13 19:00 | NUR ---
RN NOTES PATIENT IN BED, AWAKE AND VERBALLY RESPONSIVE. CONTINUES ON ROOM AIR, BREATHING EVEN AND UNLABORED. NO IV LINE PATIENT REFUSES. SAFETY MEASURES MAINTAINED. ALL DUE MEDS GIVEN. WILL ENDORSE TO COMMUNICATION CLERK RN FOR AMILCAR.
--- NOTE | 2021-08-13 19:15 | NUR ---
RN NOTES: RECEIVED AWAKE ON BED,GETTING UP AND AMBULATORY, A/0 1-2 WITH PERIODS OF FORGETFULNESS AND CONFUSION, NO IVF, NO IV CANNULA, FOR POSSIBLE DISCHARGE, THEY ARE WAITING FOR HER PLACEMENT.
[2021-08-13 20:00] VITALS: BP 116/83
--- NOTE | 2021-08-13 20:00 | NUR ---
RN NOTES: PERIODS OF AGITATION NOTED, EXPLAINED TO HER NOT TO CLOSE HER DOOR WE NEED TO KEEP HER ON CLOSE WATCH AND WE DONT WANT HER TO FALL DOWN, SHE WAS ACCUSING THE RN THAT SHE LOCKED HER ROOM,BUT SHE WAS THE ONE WHO CLOSED THE DOOR,GIVEN ORIENTATION, SHOWING RESISTANCE, GIVEN TIME OUT TO CALM DOWN, AND KEPT ON CLOSE VISUAL CHECK, SHE WAS HAVING GOOD RAPPORT WITH CN/RN, GIVEN AMPLE TIME TO RELAX.
--- NOTE | 2021-08-13 21:31 | NUR ---
RN NOTES: 2099 METOPROLOL 100 MG DOSE WAS PULLED BY JARRED IN THE PYXIS, UNABLE TO GIVE BECAUSE PATIENT WONT ALLOW RN AND CHAIR MENDER TO TAKE HER BLOOD PRESSURE. WILL TRY AGAIN LATER. --2129- CHASTITY APPROACH HER AND EXPLAINED TO HER WE NEED TO GET HER V/S, SHE SAID "NO I DONT WANT, I DONT TRUST YOU", TRYING TO CALM HER DOWN AND LET HER SIT ON THE CHAIR IN FRONT OF HER ROOM, SHE WAS PARANOID THAT SOMEBODY CLOSE HER DOOR, AND SHE IS THE ONE WHO CLOSE IT. -WILL TRY AGAIN ONCE SHE CALM SETTLED DOWN.
[2021-08-13] MEDS: DILTIAZEM HCL CD 120 MG PO SCH (22:00)
[2021-08-13] MEDS: ATORVASTATIN 40 MG TABLET PO SCH (22:01)
--- NOTE | 2021-08-13 22:01 | NUR ---
RN NOTES: LOVE/ELISHA WAS ABLE TO CONVINCE HER THAT WE WILL CHECK HER V/S, SHE AGREED BP-116/83 WI-98 SPO2-97 RA, ABLE TO GIVE HER DUE ANTI HYPERTENSIVE MEDICATION FOR 2100 AND 0. -SHE REMAIN SITTING ON THE CHAIR OUTSIDE HER ROOM AND WATCHING ALL THE NURSES PASSING BY, NO AGGRESSIVE BEHAVIOR NOTED
--- NOTE | 2021-08-14 04:11 | NUR ---
RN NOTES: SHE WENT TO BED ALMOST 0400, AWAKE MOST OF THE TIME.
--- NOTE | 2021-08-14 06:06 | NUR ---
RN NOTES: STILL AWAKE, SHE KEEP GETTING UP AND SIT OUTSIDE HER ROOM, SHE WENT BACK TO HER ROOM,SHE SAID SHE WILL LIE DOWN, THEN SHE CLOSE THE DOOR.
--- NOTE | 2021-08-14 06:57 | NUR ---
RN NOTES: EXELON NOT YET DELIVERED FROM THE PHARMACY, PATIENT IS ASLEEP, SHE INSTRUCT NOT TO BE DISTURBED IN THE MORNING, WILL ENDORSED TO GIVE MEDICATION UPON AVAILABILITY. Addendum: 08/14/21 at 0744 by SASKIA IBANEZ RN ADDED NOTES: PATIENT IS AWAKE NOW, AND GETTING UP FROM HER BED, ENDORSED FOR CONTINUITY OF CARE.
--- NOTE | 2021-08-14 07:00 | NUR ---
[facility] AM SHIFT NOTES - OPENING RECEIVED REPORT FROM PM RN AT Pt. BEDSIDE. Pt. WITHOUT ACUTE DISTRESS AT THIS TIME. Pt. LAYING IN BED, EYES CLOSED RR EVEN AND UNLABORED. VSS.
[2021-08-14] MEDS: METOPROLOL TARTRATE 50 MG TABLET PO SCH ×2 (08:23→21:40)
[2021-08-14] MEDS: LEVOTHYROXINE SODIUM 25 MCG TABLET PO SCH (08:24)
[2021-08-14] MEDS: PANTOPRAZOLE 40 MG TABLET.DR PO SCH (08:24)
[2021-08-14] MEDS: risperiDONE 1 MG TABLET PO SCH ×2 (08:27→19:35)
[2021-08-14] MEDS: DABIGATRAN ETEXILATE MESYLATE 150 MG CAPSULE PO SCH (08:29)
[2021-08-14] MEDS: RIVASTIGMINE TARTRATE 1.5 MG CAPSULE PO SCH ×2 (08:38→19:35)
[2021-08-14 20:00] VITALS: BP 137/58
--- NOTE | 2021-08-14 20:00 | NUR ---
Patient is awake, alert and oriented to self only. Denies pain or discomfort. No signs of distress. Patient is clean and dry. All safety measures in place. Will continue to monitor.
[2021-08-14] MEDS: ZOLPIDEM TARTRATE 5 MG TABLET PO PRN (21:39)
[2021-08-14] MEDS: ATORVASTATIN 40 MG TABLET PO SCH (21:40)
[2021-08-14] MEDS: DILTIAZEM HCL CD 120 MG PO SCH (21:40)
--- NOTE | 2021-08-15 06:13 | NUR ---
RN CLOSING NOTES Patient stable overnight but wanders occasionally having to redirect patient. Able to redirect. Toileted when awake, clear urine yellow. Able to anticipate needs. All safety measures in place.
[2021-08-15] MEDS: RIVASTIGMINE TARTRATE 1.5 MG CAPSULE PO SCH ×2 (06:34→18:29)
[2021-08-15] MEDS: PANTOPRAZOLE 40 MG TABLET.DR PO SCH (06:34)
[2021-08-15] MEDS: LEVOTHYROXINE SODIUM 25 MCG TABLET PO SCH (06:34)
--- NOTE | 2021-08-15 07:30 | NUR ---
m/s brick and tile making machine operator: notes received pt in bed awake, alert to name only with confusion and disorientation to time, place, and situation. reality orientation provided prn. pending placement. no c/o pain or any discomfort. instructed to call for assistance. will continue to monitor.
[2021-08-15] MEDS: METOPROLOL TARTRATE 50 MG TABLET PO SCH ×2 (08:10→21:00)
[2021-08-15] MEDS: DABIGATRAN ETEXILATE MESYLATE 150 MG CAPSULE PO SCH (08:13)
[2021-08-15] MEDS: risperiDONE 1 MG TABLET PO SCH ×2 (08:13→20:35)
[2021-08-15 08:17] VITALS: BP 98/72
--- NOTE | 2021-08-15 10:00 | NUR ---
m/s fleecer: notes in bed with eyes close. no s/s of resp. distress noted. will continue to monitor.
--- NOTE | 2021-08-15 12:00 | NUR ---
m/s wire preparation machine tender: notes resting comfortable in bed. no distress noted.
--- NOTE | 2021-08-15 15:00 | NUR ---
m/s casing tier: notes resting comfortable in bed. no distress noted. will continue to monitor.
--- NOTE | 2021-08-15 17:45 | NUR ---
m/s manager school: notes eating her dinner at this time. needs attended. no apparent distress noted. will continue to monitor.
--- NOTE | 2021-08-15 18:30 | NUR ---
m/s budget examiner: notes pt in bed in a sitting position. no c/o pain/discomfort. reality orientation provided prn. will continue to monitor.
--- NOTE | 2021-08-15 19:18 | NUR ---
m/s artists' booking representative: notes bedside report given to faa (rn) for continuity of care.
--- NOTE | 2021-08-15 19:20 | NUR ---
RN OPENING NOTES: RECEIVED PATIENT AWAKE, A/O X1. NO S/S OF DISTRESS. DENIES ANY PAIN AT THIS TIME. RESPIRATION EVEN AND UNLABORED WITH EQUAL RISE AND FALL OF THE CHEST, ON ROOM AIR. ALL SAFETY MEASURES IN PLACE. WILL CONTINUE TO MONITOR.
[2021-08-15 20:00] VITALS: BP 93/40
--- NOTE | 2021-08-15 20:38 | NUR ---
RN NOTES: RISPERIDONE 0.5MG PARTIAL DOSE WASTED PER MD ORDER.
--- NOTE | 2021-08-15 21:09 | NUR ---
MS RN NOTES: METOPROLOL 100MG/TABS HELD D/T DECREASED BP93/40, P92. WILL CONTINUE TO MONITOR.
[2021-08-15] MEDS: DILTIAZEM HCL CD 120 MG PO SCH (21:14)
[2021-08-15] MEDS: ATORVASTATIN 40 MG TABLET PO SCH (22:02)
[2021-08-16] MEDS: LEVOTHYROXINE SODIUM 25 MCG TABLET PO SCH (07:51)
[2021-08-16] MEDS: PANTOPRAZOLE 40 MG TABLET.DR PO SCH (07:51)
[2021-08-16] MEDS: risperiDONE 1 MG TABLET PO SCH ×2 (07:51→19:51)
[2021-08-16 08:00] VITALS: BP 110/70
[2021-08-16] MEDS: RIVASTIGMINE TARTRATE 1.5 MG CAPSULE PO SCH ×2 (08:10→18:13)
[2021-08-16] MEDS: METOPROLOL TARTRATE 50 MG TABLET PO SCH ×2 (08:11→20:21)
[2021-08-16] MEDS: DABIGATRAN ETEXILATE MESYLATE 150 MG CAPSULE PO SCH (08:12)
--- NOTE | 2021-08-16 10:50 | NUR ---
m/s ultrasonic tester: notes pt pacing in hallway and room. reality orientation provided prn. will continue to monitor.
--- NOTE | 2021-08-16 13:35 | NUR ---
m/s photographic plate maker: notes pt dressed up with own clothes, sitting in chair by the nurse's station. remains confused and disoriented to time, place, and situation. reality orientation provided prn.
--- NOTE | 2021-08-16 15:00 | NUR ---
m/s packer operator automatic: notes pt keeps going in and out of her room. remains confused and disoriented to time, place, and situation. reality orientation provided prn. will continue to monitor.
[2021-08-16 16:00] VITALS: BP 135/75
--- NOTE | 2021-08-16 17:30 | NUR ---
m/s marketing liaison: notes pt refusing to eat her dinner, offered x3. encouraged to drink liquid, but refuses. pt gathered her belongings and wants to go home. reality orientation provided prn. will continue to monitor.
[2021-08-16] MEDS: ACETAMINOPHEN 325 MG TABLET PO PRN (18:13)
--- NOTE | 2021-08-16 19:15 | NUR ---
m/s supplier quality manager: notes bedside report given to stas (rn) for continuity of care.
--- NOTE | 2021-08-16 19:30 | NUR ---
MS RN OPENING NOTES PATIENT SITTING IN CHAIR IN ROOM WITH BELONGINGS IN HAND, ALERT/ORIENTED X 1, CONFUSED. PT BELIEVES SHE IS GOING HOME, REORIENTED PATIENT. PT STABLE ON RA, NO S/S OF DISTRESS OR SOB NOTED, BREATHING EVEN AND UNLABORED. PT IS AMBULATORY AND STABLE WITH BRP. NO IV ACCESS NOTED. ENCOURAGED FLUID INTAKE. SAFETY MEASURES IN PLACE: CALL LIGHT WITHIN REACH, SIDE RAILS UP X 2, BED LOCKED IN LOW POSITION. WILL CONTINUE TO MONITOR PATIENT AND REORIENT
[2021-08-16 20:00] VITALS: BP 146/93
[2021-08-16] MEDS: DILTIAZEM HCL CD 120 MG PO SCH (22:00)
[2021-08-16] MEDS: ZOLPIDEM TARTRATE 5 MG TABLET PO PRN (22:16)
[2021-08-16] MEDS: ATORVASTATIN 40 MG TABLET PO SCH (22:16)
--- NOTE | 2021-08-17 06:37 | NUR ---
MS RN CLOSING NOTES PATIENT AWAKE IN BED, ALERT/ORIENTED X 1 AND CONFUSED. NO SIGNIFICANT CHANGES THROUGHOUT SHIFT. PT WAS AWAKE MOST OF THE NIGHT DESPITE GIVEN PRN AMBIEN AND NEEDED FREQUENT REORIENTATION. PT STABLE ON RA, NO S/S OF DISTRESS OR SOB NOTED, BREATHING EVEN AND UNLABORED. SAFETY MEASURES IN PLACE: CALL LIGHT WITHIN REACH, SIDE RAILS UP X 2, BED LOCKED IN LOW POSITION. WILL ENDORSE TO DAY SHIFT NURSE FOR CONTINUITY OF CARE
--- NOTE | 2021-08-17 07:50 | NUR ---
MS RN OPENING NOTES RECEIVED PT SITTING IN BED, AWAKE, AMBULATORY, NO SIGNS OF ACUTE DISTRESS NOTED. ON ROOM AIR, SATTING @95%, NO SOB NOTED, BREATHING EVEN AND UNLABORED. DENIES ANY PAIN OR DISCOMFORT AT THIS TIME. SAFETY PRECAUTIONS MAINTAINED, BED LOCKED AND IN LOWEST POSITION, SR UP X2, CALL LIGHT PLACED WITHIN EASY REACH. WILL CONTINUE TO MONITOR.
[2021-08-17 08:00] VITALS: BP 113/58
[2021-08-17] MEDS: PANTOPRAZOLE 40 MG TABLET.DR PO SCH (08:05)
[2021-08-17] MEDS: RIVASTIGMINE TARTRATE 1.5 MG CAPSULE PO SCH (08:05)
[2021-08-17] MEDS: LEVOTHYROXINE SODIUM 25 MCG TABLET PO SCH (08:05)
[2021-08-17] MEDS: risperiDONE 1 MG TABLET PO SCH (08:06)
[2021-08-17] MEDS: DABIGATRAN ETEXILATE MESYLATE 150 MG CAPSULE PO SCH (08:25)
[2021-08-17] MEDS: METOPROLOL TARTRATE 50 MG TABLET PO SCH (08:57)
[2021-08-17 16:00] VITALS: BP 132/56
--- NOTE | 2021-08-17 17:00 | NUR ---
RN NOTES PT FOR DISCHARGE TO [facility] TODAY, CALLED REPORT TO MEJIA WHEATLEY @ 1650. PLACED A CALL TO PT'S DAUGHTER FREDY BUT NO ANSWER AND V/M IS FULL. PER CM, PT WILL BE P/U BY AMBULANCE @ [phone].
--- NOTE | 2021-08-17 17:51 | NUR ---
RN NOTES PLACED ANOTHER CALL TO PT'S DAUGHTER RFEDY BUT STILL NO ANSWER REGARDING PT'S TRANSFER TO [facility], BU STILL NO ANSWER AND VM IS FULL.
--- NOTE | 2021-08-17 17:52 | NUR ---
RN NOTES PT AWAKE IN BED, A/O X2, WITH FORGETFULNESS, AMBULATORY. PT WILL BE TRANSFERRED TO [facility], REPORT ALREADY GIVEN TO DIONI BA, PT WILL BE GOING TO ROOM 14B. BODY ASSESSMENT DONE, SKIN INTACT, WITH DISCOLORATION ON RIGHT HAND AND SACRAL REDNESS. PHOTOS TAKEN, PLACED IN CHART. VITALS SIGNS TAKEN, STABLE AND RECORDED. ALL BELONGINGS ACCOUNTED FOR, FORMS SIGNED BY PT. HEALTH TEACHINGS PROVIDED TO PT BUT NEEDS REINFORCEMENT. AWAITING FOR AMBULANCE TRANSPORT, PER [facility] TRANSPORT WAS ARRANGED BY [facility].
--- NOTE | 2021-08-17 18:25 | NUR ---
PEDIGREE RESEARCHER NOTES [facility] AMBULANCE CAME IN @1805 TO PICK-UP PT. PT WAS ASSESSED, PICKED-UP @1820 VIA [facility]URNEY TO BE TRANSPORTED TO [facility]. PT IN STABLE CONDITION. MD AND CN AWARE OF DISCHARGE.
== END 2021-08-17 18:20 | DRG 640 ==
LOC: MERGE 19:01 → ER 20:06 → TRANSITION 08-05 03:25 → MED 08-05 05:13
PROVIDERS: ADMIT Student in an Organized Health Care Education/Training Program; ATTEND Nurse Practitioner Acute Care
DX: R62.7 Adult failure to thrive (principal); N17.0 Acute kidney failure with tubular necrosis; E44.1 Mild protein-calorie malnutrition; J98.11 Atelectasis; E86.0 Dehydration; F03.90 Unspecified dementia, unspecified severity, without behavioral disturbance, psychotic disturbance, mood disturbance, and anxiety; I12.9 Hypertensive chronic kidney disease with stage 1 through stage 4 chronic kidney disease, or unspecified chronic kidney disease; Z20.822 Contact with and (suspected) exposure to COVID-19; N18.9 Chronic kidney disease, unspecified; Z88.8 Allergy status to other drugs, medicaments and biological substances; E03.9 Hypothyroidism, unspecified; N27.0 Small kidney, unilateral
CPT/HCPCS: 36415; 70450-TC; 71045-TC; 76770-TC; 80048-TC; 80076-TC; 81001; 82140-TC; 82570-TC; 83735-TC; 84100-TC; 84300-TC; 84439-TC; 84443-TC; 84484-TC; 85025-TC; 85730-TC; 87081-TC; 97116-TC; 97530-TC; C9803; G0378; G0480; J2060; J2405; J3490